=== PATIENT | male | born 1955 | race Two or more races ===

== ENCOUNTER 2024-07-16 16:54 | Emergency (ER) | payer OTHER, MEDICAID ==
[~2024-07-16] VITALS: Ht 172.7 cm; Wt 89.7 kg
[~2024-07-16 16:54] MED LIST: BACL10TA; CIPR-173 PO; FERR-7; GABA-1308; GLYB2.5T71; HYDR7.5T; PRED-188 PO; [UNRECOGNIZED DRUG - CODE] PR; [UNRECOGNIZED DRUG - OTHER]
[2024-07-16 18:34] VITALS: TEMP 98.4; O2SAT 96
[2024-07-16] MEDS: ONDANSETRON ODT 4 MG TAB PO ONE (19:34)
[2024-07-16] MEDS: MORPHINE SULFATE INJ 2 MG/ml SYRG IM ONE (19:36)
[2024-07-16 20:11] VITALS: BP 145/73; PULSE 75; RESP 18
== END 2024-07-16 20:54 | disposition home or self-care (01) ==
LOC: ER 16:54
DX: S39.012A Strain of muscle, fascia and tendon of lower back, initial encounter (principal); E11.9 Type 2 diabetes mellitus without complications; E78.5 Hyperlipidemia, unspecified; X58.XXXA Exposure to other specified factors, initial encounter; Y93.89 Activity, other specified; Y92.89 Other specified places as the place of occurrence of the external cause; Y99.8 Other external cause status
CPT/HCPCS: 72100; 96372; 99283; J2270; Q0162